=== PATIENT | male | born 2000 | race African-American/Black ===

== ENCOUNTER 2024-06-17 12:46 | Emergency (ER) | payer OTHER ==
[2024-06-17 13:09] VITALS: BMI 25.0
[2024-06-17] MEDS ORDERED: ACETAMINOPHEN INJECTION 100 ML ONE (13:49)
[2024-06-17] MEDS: ACETAMINOPHEN 1000 MG/100 ML BAG IVPB ONE (13:52)
[2024-06-17 13:55] LABS: EOS % 0.1 % (0-4.5); HEMATOCRIT 46.1 % (35.4-49); HEMOGLOBIN 15.1 GM/dL (11.7-16.9); LYMPH % 16.6 % (8-40); MCH 26.7 pg (25.7-33.7); MCHC 32.9 g/dl (32.0-35.9); MEAN CELL VOLUME 81.3 fl (80-96); MEAN PLT VOLUME 8.3 fl (7.5-11.1); MONO % 6.6 % (3.8-10.2); NEUT % 75.7 % (42.8-82.8); PLATELET COUNT 255 10^3/uL (134-434); RBC 5.67 M/mm3 (4.00-5.60); WHITE BLOOD COUNT 11.8 K/mm3 (4.0-10.0)
[2024-06-17 14:25] LABS: CALCIUM 9.6 mg/dL (8.5-10.1)
[2024-06-17 14:31] LABS: BLOOD UREA NITROGEN 8.5 mg/dL (7-18)
[2024-06-17 14:51] VITALS: BP 111/65; PULSE 78; RESP 20; TEMP 98
== END 2024-06-17 14:56 | disposition home or self-care (01) ==
LOC: JER 12:46
PROC: 3E033NZ Introduction of Analgesics, Hypnotics, Sedatives into Peripheral Vein, Percutaneous Approach (ICD-10-PCS; principal; 2024-06-17)
DX: R22.0 Localized swelling, mass and lump, head (principal); R50.9 Fever, unspecified; K04.7 Periapical abscess without sinus
CPT/HCPCS: 36415; 80048; 85025; 96374; 99284-25; J0131